=== PATIENT | male | born 1990 | race Two or more races ===

== ENCOUNTER 2020-09-08 17:26 | Inpatient (IN) | payer BC ==
[~2020-09-08] VITALS: Ht 175.3 cm; Wt 90.2 kg
[2020-09-08] MEDS ORDERED: ENOXAPARIN SOD 100 MG/1 ML SYRINGE SC ONE (18:45)
[2020-09-08 19:10] LABS: Basophils # (auto) 0 10 ^3/uL (0-0.2); Basophils % (auto) 0.2 % (0.0-2.0); Eosinophils # (auto) 0.1 10 ^3/uL (0-0.8); Eosinophils % (auto) 1.3 % (0.0-7.0); Hematocrit 44.3 % (41.0-53.0); Hemoglobin 15.4 g/dL (13.5-17.5); Lymphocytes # (auto) 2.5 10 ^3/uL (0.4-5.4); Lymphocytes % (auto) 27.5 % (10.0-50.0); Mean Corpuscular Hemoglobin 32.6 pg (28.0-32.0); Mean Corpuscular Hgb Conc. 34.8 g/dL (32.0-36.0); Mean Corpuscular Volume 93.8 fL (80.0-100.0); Monocytes # (auto) 0.7 10 ^3/uL (0-1.3); Monocytes % (auto) 7.5 % (0.0-12.0); Neutrophils # (auto) 5.8 10 ^3/uL (1.6-8.6); Neutrophils % (auto) 63.5 % (37.0-80.0); Platelet Count (auto) 236 10^3/uL (140-450); Red Blood Cells 4.72 10^6/uL (4.5-5.90); Red Cell Distribution Width 13.7 % (11.8-14.3); White Blood Cell 9.1 10^3/uL (4.4-10.8)
[2020-09-08 19:25] LABS: INR 0.98 (0.9-1.15)
[2020-09-08 19:41] LABS: Albumin 3.7 g/dL (3.4-5.0); Calcium 9.1 mg/dL (8.5-10.1); Potassium 3.7 mmol/L (3.5-5.1)
[2020-09-08 19:45] LABS: BUN/Creatinine Ratio 13.2; Bilirubin, Total 0.4 mg/dL (0.2-1.0); Total Protein 6.6 g/dL (6.4-8.2)
[2020-09-08] MEDS ORDERED: IOHEXOL 350 MG/ML 100ML IJ ONE (19:47)
[2020-09-08] MEDS ORDERED: ACETAMINOPHEN 325 MG TAB PO PRN (21:30)
[2020-09-08] MEDS ORDERED: MORPHINE SULF INJ 2 MG/ML SYRINGE 1ML IV PRN (21:30)
[2020-09-08] MEDS ORDERED: NITROGLYCERIN 0.4 MG SL TAB SL PRN (21:30)
[2020-09-08] MEDS ORDERED: DOCUSATE SOD 100 MG CAP PO PRN (21:30)
[2020-09-08] MEDS ORDERED: TEMAZEPAM 15 MG CAP PO PRN (21:30)
[2020-09-08] MEDS ORDERED: ONDANSETRON HCL 4 MG/2 ML VIAL IV PRN (21:30)
[2020-09-08] MEDS: SODIUM CHLOR 0.9% PF (SALINE LOCK) 10ML VIAL/SYR IV SCH (22:10)
[2020-09-08] MEDS: FAMOTIDINE 20 MG TAB PO SCH (22:10)
[2020-09-09] MEDS ORDERED: DUPI200I SC (05:32)
[2020-09-09] MEDS: SODIUM CHLOR 0.9% PF (SALINE LOCK) 10ML VIAL/SYR IV SCH ×3 (06:05→21:50)
[2020-09-09] MEDS: HYDROcodone-ACET 5/325MG TAB PO PRN ×2 (06:56→19:37)
[2020-09-09 08:38] VITALS: BP 135/73
[2020-09-09] MEDS: FAMOTIDINE 20 MG TAB PO SCH ×2 (09:37→21:51)
[2020-09-09 10:11] LABS: Basophils # (auto) 0 10 ^3/uL (0-0.2); Basophils % (auto) 0.3 % (0.0-2.0); Eosinophils # (auto) 0.1 10 ^3/uL (0-0.8); Eosinophils % (auto) 1.7 % (0.0-7.0); Hemoglobin 14.9 g/dL (13.5-17.5); Lymphocytes # (auto) 1.4 10 ^3/uL (0.4-5.4); Lymphocytes % (auto) 20.3 % (10.0-50.0); Mean Corpuscular Hemoglobin 32.6 pg (28.0-32.0); Mean Corpuscular Hgb Conc. 35.4 g/dL (32.0-36.0); Mean Corpuscular Volume 92.3 fL (80.0-100.0); Monocytes # (auto) 0.5 10 ^3/uL (0-1.3); Monocytes % (auto) 7.2 % (0.0-12.0); Neutrophils % (auto) 70.5 % (37.0-80.0); Nucleated Red Blood Cells % 0.1 %; Platelet Count (auto) 220 10^3/uL (140-450); Red Blood Cells 4.55 10^6/uL (4.5-5.90); Red Cell Distribution Width 13.2 % (11.8-14.3); White Blood Cell 7.1 10^3/uL (4.4-10.8)
[2020-09-09 10:30] LABS: Albumin 3.3 g/dL (3.4-5.0); Calcium 8.8 mg/dL (8.5-10.1); Potassium 3.6 mmol/L (3.5-5.1)
[2020-09-09 10:33] LABS: BUN/Creatinine Ratio 13.5; Bilirubin, Total 0.7 mg/dL (0.2-1.0)
[2020-09-09] MEDS ORDERED: ENOXAPARIN SOD 100 MG/1 ML SYRINGE SC ONE (11:45)
[2020-09-09] MEDS: MORPHINE SULFATE 4 MG/ML SYR/VIAL IV PRN ×3 (12:27→22:02)
[2020-09-09 12:46] VITALS: BP 135/94
[2020-09-09 17:00] VITALS: BP 129/77
[2020-09-09] MEDS ORDERED: ENOXAPARIN SOD 100 MG/1 ML SYRINGE SC SCH (19:00)
[2020-09-09] MEDS: ENOXAPARIN SOD 100 MG/1 ML SYRINGE SC SCH (21:51)
[2020-09-09 22:00] VITALS: BP 141/94
[2020-09-10 05:00] VITALS: BP 125/70
[2020-09-10] MEDS: SODIUM CHLOR 0.9% PF (SALINE LOCK) 10ML VIAL/SYR IV SCH ×3 (05:40→21:01)
[2020-09-10 08:44] VITALS: BP 112/72
[2020-09-10] MEDS: FAMOTIDINE 20 MG TAB PO SCH ×2 (09:12→21:01)
[2020-09-10] MEDS: ENOXAPARIN SOD 100 MG/1 ML SYRINGE SC SCH ×2 (09:12→21:01)
[2020-09-10] MEDS: MORPHINE SULFATE 4 MG/ML SYR/VIAL IV PRN ×2 (09:13→21:01)
[2020-09-10 12:50] VITALS: BP 122/75
[2020-09-10] MEDS: HYDROcodone-ACET 5/325MG TAB PO PRN (15:02)
[2020-09-10 16:36] VITALS: BP 124/72
[2020-09-10 22:00] VITALS: BP 135/88
[2020-09-11 05:00] VITALS: BP 119/74
[2020-09-11] MEDS: MORPHINE SULFATE 4 MG/ML SYR/VIAL IV PRN ×2 (05:04→11:31)
[2020-09-11] MEDS: SODIUM CHLOR 0.9% PF (SALINE LOCK) 10ML VIAL/SYR IV SCH (05:05)
[2020-09-11 09:00] VITALS: BP 126/74
[2020-09-11] MEDS: ENOXAPARIN SOD 100 MG/1 ML SYRINGE SC SCH (09:15)
[2020-09-11] MEDS: FAMOTIDINE 20 MG TAB PO SCH (09:15)
[2020-09-11 12:57] VITALS: BP 124/72
== END 2020-09-11 14:20 | disposition home or self-care (01) | DRG 301 ==
LOC: ER 17:26 → TELE 21:37 → TELE-EAST 09-09 04:21
PROVIDERS: ADMIT Nurse Practitioner Family; ATTEND Family Medicine
DX: I82.431 Acute embolism and thrombosis of right popliteal vein (principal); I82.441 Acute embolism and thrombosis of right tibial vein; K76.0 Fatty (change of) liver, not elsewhere classified; I82.411 Acute embolism and thrombosis of right femoral vein; Z20.822 Contact with and (suspected) exposure to COVID-19; Z79.01 Long term (current) use of anticoagulants; Z83.3 Family history of diabetes mellitus; Z85.72 Personal history of non-Hodgkin lymphomas; Z86.718 Personal history of other venous thrombosis and embolism; Z88.8 Allergy status to other drugs, medicaments and biological substances; Z88.1 Allergy status to other antibiotic agents
CPT/HCPCS: 36415; 71275; 80053; 85025; 85379; 85610; 87081; 87426; 93971; 96372; G0378